=== PATIENT | male | born 1945 | race Caucasian/White ===

== ENCOUNTER → 2024-05-23 11:35 | Outpatient (CLI) | payer MEDICARE, SELFPAY ==
--- NOTE | 2024-05-23 11:42 | EKG_ITS ---
[address] [address] [place] [address] Test Date: 2024-05-23 Pat Name: Oswaldo Pastrana Department: [facility] Room: Gender: Male [employer] Business Analyst: MICAH : 1945 Requested By: Order Number: [id number] Reading MD: Efrain Rocha Measurements Intervals [place] Rate: 69 P: 61 VT: 148 QRS: 18 QRSD: 80 T: 20 QT: 376 QTc: 402 Interpretive Statements Normal sinus rhythm Electronically Signed On 05-25-2024 9:44:51 PDT by Efrain Rocha
[2024-05-23 12:20] LABS: Add Manual Diff / Slide Review NO; Basophils Absolute Auto 0 /uL (0-100); Eosinophils Absolute Auto 100 /uL (0-450); Eosinophils Percent Auto 3.4 % (2-4); Hematocrit 46.2 % (41-53); Hemoglobin 15.9 g/dL (13.5-17.5); Lymphocytes Absolute Auto 1200 /uL (1100-4500); Lymphocytes Percent Auto 28.9 % (25-40); Mean Corpuscular HGB Conc 34.5 % (30-36); Mean Corpuscular Volume 95.7 fL (80-100); Monocytes Absolute Auto 500 /uL (0-900); Monocytes Percent Auto 12.6 % (3-14); Neutrophils Absolute Auto 2300 /uL (1500-7000); Neutrophils Percent Auto 54.1 % (50-75); Platelet Count 211 X10^3/uL (150-400); Red Blood Cell Count 4.83 X10^6/uL (4.5-5.9); Red Cell Distribution Width 14.6 % (11.6-14.8); White Blood Cell Count 4.3 X10^3/uL (4.5-11.0)
[2024-05-23 12:35] LABS: BUN Creatinine Ratio 11.2 (6-22); Blood Urea Nitrogen 10 mg/dL (9-20); Calcium 9.5 mg/dL (8.4-10.2); Carbon Dioxide 26 mmol/L (22-32); Chloride 105 mmol/L (98-107); Estimated Glomerular Filt Rate > 60 mL/min (>60); Glucose 91 mg/dL (80-110); HEMOLYSIS < 15 (0-50); Sodium 138 mmol/L (137-145)
== END ==
PROVIDERS: PCP Family Medicine; Referring Provider Orthopaedic Surgery; Visit Provider Orthopaedic Surgery
DX: Z01.818 Encounter for other preprocedural examination (principal); Z01.812 Encounter for preprocedural laboratory examination
CPT/HCPCS: 36415; 80048; 85025; 93005

== ENCOUNTER → 2024-07-16 10:41 | Outpatient (CLI) | payer MEDICARE, SELFPAY ==
--- NOTE | 2024-07-16 | DI.CT.S_ITS ---
PROCEDURE: CT UE LT WO CON INDICATIONS: PAIN IN LEFT SHOULDER TECHNIQUE: Noncontrast 0.75 mm thick sections acquired from the acromioclavicular joint to the inferior scapula, with coronal and sagittal reformatting. COMPARISON: [facility] [place], [place], XR SHOULDER 2+ VIEWS LEFT, 05/19/2024, 11:27. FINDINGS: Image quality: Excellent. Bones: There is moderate periarticular osteophyte formation at the acromioclavicular and glenohumeral joints. No acute fracture or osseous lesion. Soft tissues: There are calcifications seen within the subscapularis and supraspinatus tendons at the humeral insertion sites extending to musculotendinous junctions. There are intra-articular loose bodies within the glenohumeral joint. There is a large amount of fluid surrounding the biceps tendon which appears calcified. IMPRESSION: 1. 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 2. Acromioclavicular and glenohumeral joint osteoarthritis. 3. Intra-articular loose bodies within the glenohumeral joint. 4. Large amount of fluid surrounding the biceps tendon with probable partial thickness biceps tendon tearing. MRI may be helpful for further assessment. Dictated by: Bryan Sosa M.D. on 07/16/2024 at 15:38 Approved by: Bryan Sosa M.D. on 07/16/2024 at 15:42
== END ==
LOC: CT 10:41
PROVIDERS: PCP Family Medicine; Referring Provider Orthopaedic Surgery; Visit Provider Orthopaedic Surgery
DX: M19.012 Primary osteoarthritis, left shoulder (principal); M75.32 Calcific tendinitis of left shoulder; M24.012 Loose body in left shoulder; M25.512 Pain in left shoulder
CPT/HCPCS: 73200

== ENCOUNTER 2024-10-02 10:15 | Day surgery (SDC) | payer MEDICARE, SELFPAY ==
[2024-09-17 10:58] VITALS: BMI 24.7
[2024-10-02] VITALS (10 sets, daily range): BP systolic 119–166; BP diastolic 68–90; PULSE 69–98; RESP 11–19; TEMP 36.2–36.9; O2SAT 92–99; BMI 24.7
--- NOTE | 2024-10-02 06:00 | DI.RAD.S_ITS ---
PROCEDURE: XR SHOULDER LT 1V INDICATIONS: post-op TECHNIQUE: 1 views of the shoulder were acquired. COMPARISON: [facility], CR, XR SHOULDER 2+ VIEWS LEFT, 05/19/2024, 11:27. FINDINGS: Shoulder arthroplasty is present. Postsurgical changes are present. Hardware is intact and there is good anatomic alignment. Soft tissue postsurgical changes present. Partially visualized left basilar opacity. IMPRESSION: Shoulder arthroplasty postsurgical change. Opacity is present in the left base partially visualized. This may represent a small effusion. Superimposed areas of atelectasis and/or pneumonia cannot be excluded. As indicated, chest x-ray may be obtained. Dictated by: Sania John M.D. on 10/02/2024 at 20:29 Approved by: Sania John M.D. on 10/02/2024 at 20:30
[2024-10-02] MEDS: ACETAMINOPHEN 325 MG TABLET 975 MG PO (10:53)
[2024-10-02] MEDS: LACTATED RINGERS 1,000 ML 42 ML IV ×2 (10:54→13:41)
--- NOTE | 2024-10-02 11:29 | P.HP_ITS ---
History of Present Illness History of Present Illness Date Patient Seen: 10/02/24 Time Patient Seen: 11:29 Chief complaint: left TSA reverse Narrative: This is a pleasant 78-year-old male with left glenohumeral arthritis here for a left total shoulder arthroplasty. Has not had any significant changes in his symptoms since I last talked to him. Has had an increase in his pain although he has maintained some of his range of motion. 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) History of appendectomy Social History household members: spouse Smoking Status: Never smoker alcohol intake: current Meds Home Medications and Allergies Home Medications Medication Instructions Recorded Confirmed Type apixaban 5 mg tablet (Eliquis) 2.5 mg PO BID 09/17/24 10/02/24 History Allergies Allergy/AdvReac Type Severity Reaction Status Date / Time Penicillins AdvReac Rash Verified 10/02/24 10:19 Neoprene AdvReac Rash Uncoded 10/02/24 10:19 Review of Systems Review of Systems ROS: Yes All systems reviewed with the patient and are negative except as otherwise documented Exam Vital Signs (past 8 hours): - 10/02/24 10:47 Temperature 98.4 F Pulse Rate 82 Respiratory Rate 16 Blood Pressure 166/90 H Pulse Oximetry 99 Oxygen Delivery Method Room Air Oxygen Delivery Method Room Air Narrative Exam Narrative: HEENT: Head atraumatic eyes anicteric moist mucous membranes Cardiovascular: Palpable peripheral pulses extremities are warm and well perfused Respiratory: Breathing comfortably on room air Psychiatric: Appropriate mood and affect Neuro: No acute deficits Musculoskeletal: Exam of left upper extremity unchanged from when I last saw him in clinic, he has 145? of forward elevation and external rotation is 30 Assessment & Plan Assessment & Plan narrative: assessment: 78-year-old male with left glenohumeral arthritis here for a reverse total shoulder arthroplasty Plan: We discussed that he may be a candidate for a anatomic however given his age and some changes around the greater tuberosity we will go forward with a reverse. Risks and benefits of surgery were discussed again including the risk of infection, damage to internal structures, bleeding, nerve injury, instability, need for revision surgery, blood clots, anesthesia and . No guarantees were made regarding outcomes. Patient expressed understanding and accepted these risks and wished to go forward with surgery and consent was signed. Time-Based Coding :: [TOTAL MINUTES] spent with patient and on the chart (including review of chart, obtaining history, exam, reviewing outside data, placing orders, documenting exam and treatment plan, and counseling patient) on [DATE].
[2024-10-02] MEDS: CEFAZOLIN 2 GM/100 ML PREMIX 100 ML IV (12:09)
[2024-10-02] MEDS: TRANEXAMIC ACID 1,000 MG VIAL 1000 MG INJ (12:15)
--- NOTE | 2024-10-02 12:30 | SUR.OPER ---
Beach chair with Schlein shoulder positioner. Lower body on padded OR bed. Head in foam padded head cradle, secured with straps. Non-operative arm padded and tucked across chest. Pillow under knees. Safety belt at thigh. Cloth tape over blanket over lower legs.
[2024-10-02] MEDS: BUPIVACAINE 0.25% (PF) 30 ML, EPINEPHrine 0.15 MG INJ (12:36)
--- NOTE | 2024-10-02 13:26 | P.OP_ITS ---
Operative Date/Time/Diagnoses Date of procedure: 10/02/24 Time of procedure: 13:26 Pre-op diagnosis: Left glenohumeral arthritis Post-op diagnosis: same Procedure & Clinicians Procedure: Left reverse total shoulder arthroplasty Same procedure as scheduled: Yes Indications: Indications: This is a 78-year-old male who has left glenohumeral arthritis. Symptoms have been present for years, insidious onset. Patient has failed a reasonable attempt at conservative therapy. After extensive discussion in clinic, they wished to go forward with surgery. Risks and benefits were described including the risk of infection, bleeding, damage to internal structures including nerves. We also discussed the risk of failure of surgery and the need for revision surgery as well as the risk of anesthesia. The patient expressed understanding with these risks and wished to go forward with surgery. Surgeon: Maximino Duran Aco Coordinator: Bindu John Anesthesia Type: General Operative Notes Findings: Findings: Osteoarthritis of the glenoid and humeral head as well as a defient rotator cuff as noted on preoperative imaging and under direct visualization Closure Type: primary Specimen(s): none sent Prosthetic devices, grafts, tissues, transplants, or devices: Tornier implants Base plate: standard 25 mm, +3 mm offset Glenosphere: 39 mm Stem: Perform + 3 Poly: +6, 55 % coverage Estimated Blood Loss (mL): 100 Blood products transfused: none Procedure in detail: Patient was seen in the preoperative holding unit. The correct left shoulder was identified and marked with my initials. Again we discussed the risks and benefits of surgery and they wished to go forward with surgery. The patient was brought back to the operating room and placed supine on the operating table. Smooth endotracheal intubation was performed by anesthesia. All prominences were padded and they were placed into the beach chair position. Intravenous antibiotics were given. The left shoulder was then prepped with the standard sterile preparation and draping. A time-out was then performed in my initials were again identified on the correct shoulder. 1 g of IV tranexamic acid was given. A standard deltopectoral incision was made. Skin flaps were made. The cephalic vein was identified and retracted laterally. This was protected throughout the remainder of the case. Sharp dissection was made along the deltoid, subacromial and subcoracoid space to release adhesions. The conjoined tendon was identified and the axillary nerve was palpated and continuous using the tug test. It was protected throughout the remainder of the case. A brown retractor was placed underneath the deltoid muscle and a darach retractor underneath the conjoint tendon. The subscapularis muscle was ntoed to be intact. The anterior circumflex artery and associated veins on the lower border of the subscapularis were identified and tied off using 0-Vicryl. The biceps tendon was identified in the bicipital groove. This was released from its sheath, and taken from its origin on the glenoid and tied into the pectoralis tendon for a solid tenodesis. We then began a subscapularis peel. The subscapularis was tagged with an Et hibond suture. A 360 degree circumferential release of the subscapularis was performed with protection of the axillary nerve. The coracohumeral ligament was released at the base of the coracoid. The shoulder was then dislocated. Osteophytes were removed using combination of rongeur and osteotome. The rotator cuff was noted to be intact. An intramedullary guide was used set at version of 20?. Using an oscillating saw a conservative humeral head cut was made. Impaction reamers were reamed up to a size 3+ stem with a built-in angle 135?. A neck protector was placed. Attention was then turned to the glenoid. After retracting the humeral head posteriorly a circumferential release was performed of the capsule with protection of the axillary nerve. The labrum was then released starting at the biceps anchor and going around the rim a small amount of triceps was released from the inferior glenoid. A center guide pin was then placed using the guide, followed by Reamer. After adequate cartilage was removed the boss was reamed and the centeral hole was drilled and measured. The base plate was then implanted and screwed into place. The peripheral screws were then sequentially drilled, measured, and placed. A 36 standard glenosphere was then selected and screwed into place onto the base plate. Turning back to the humerus, the humeral head was delivered and trialed with a + 6, 55% coverage. The arm was taken through range of motion and this was felt to be stable. The trial was then removed and a dilute Betadine wash was then performed with 1 L of sterile saline. Before placing the final implant, drill holes were made in the bicipital groove for the subscapularis repair, and sutures were passed through the drill holes. The final stem was then impacted into the humerus. The shoulder was then reduced and again brought through range of motion and was felt to be stable. The subscapularis was then repaired using a modified racking hitch with nice loupes. The skin was closed with 2-0 vicryl and 3-0 Monocryl followed by Aquacel dressing. Patient was awoken from anesthesia and brought back to the postoperative recovery unit without issue. They were placed into a sling. Assisting participation: This operation could not have been safely performed (without compromising the technical results or length of the procedure) without the assistance of a skilled regional vice president surgical sales. The regional vice president surgical sales was medically necessary for proper positioning, retraction and manipulation of instruments, proper exposure, graft prep, and manipulation of tissue. Complications: none Post-operative Condition: stable Disposition: PACU Plan for aftercare: Postoperative instructions: Sling to remain on for 6 weeks. No external rotation past neutral for 6 weeks. Okay for the sling to come off for shower. Okay to shower over the Aquacel dressing. If any water gets underneath the dressing, remove the dressing. First postoperative visit in 2 weeks.
[2024-10-02] MEDS: ONDANSETRON 4 MG/2 ML INJ IV (14:06)
[2024-10-02] MEDS: hydrOXYzine 50 MG/ML INJ 25 MG IM (14:07)
== END 2024-10-02 15:22 | disposition home or self-care (01) ==
LOC: OR 10:17 → AC 10:18
PROVIDERS: PCP Family Medicine; Referring Provider Orthopaedic Surgery; Visit Provider Orthopaedic Surgery
PROC: (CPT 23472; principal; 2024-10-02 12:45)
DX: M19.012 Primary osteoarthritis, left shoulder (principal); M25.711 Osteophyte, right shoulder
CPT/HCPCS: 23472; 73020; C1776; J0171; J0330; J0690; J1171; J2250; J2405; J2704; J3010; J3410